=== PATIENT | male | born 1975 | race Caucasian/White ===

== ENCOUNTER 2022-09-23 14:00 | Outpatient (RCR) | payer OTHER, SELFPAY | END 2023-04-15 23:59 | disposition home or self-care (01) | PROVIDERS: PCP Family Medicine; Visit Provider Orthopaedic Surgery | DX: S62.101D Fracture of unspecified carpal bone, right wrist, subsequent encounter for fracture with routine healing (principal); Z51.89 Encounter for other specified aftercare | CPT/HCPCS: 97110; 97140; 97166; X5282 ==

== ENCOUNTER 2024-02-11 08:55 | Outpatient (CLI) | payer OTHER, SELFPAY ==
--- OUTSIDE RECORDS SUMMARY | 2024-02-11 08:57 | XMS_ITS | Clinical Summary ---
Author Name Unknown Organization [employer] [facility] [employer] Address [place], [place] [address] Care Team Providers Care Java Sql Developer Name Role Phone Danie Chavez MD Primary Care Provider + Allergies No known active allergies Medications Medication Sig Dispensed Refills Start Date End Date Status HYDROcodone-acetam inophen (NORCO) 5-325 mg per tabletIndications: Closed displaced fracture of head of right radius, initial encounter Take 1-2 Tablets by mouth every 6 hours if needed for Pain. Max acetaminophen dose: 4000 mg in 24 hrs. 30 Tablet 09/02/2022 Active naproxen (NAPROSYN) 500 mg tabletIndications: Closed displaced fracture of head of right radius, initial encounter Take 1 Tablet (500 mg) by mouth two times daily. 60 Tablet 1 09/02/2022 Active sennosides-docusat e (SENOKOT S) (8.6-50 mg) tabletIndications: Closed displaced fracture of head of right radius, initial encounter Take 1 Tablet by mouth two times daily. Take to prevent constipation while also using narcotic pain medication 60 Tablet 09/02/2022 Active Active Problems Problem Noted Date Diagnosed Date Unspecified hearing loss 06/27/2012 Occupational exposure to noise 06/27/2012 Overview: [facility] Social History Tobacco Use Types Packs/Day Years Used Date Smoking Tobacco: Never Smokeless Tobacco: Never Alcohol Use Standard Drinks/Week Comments Never 0 (1 standard drink = 0.6 oz pur e alcohol) Sex and Gender Information Value Date Recorded Sex Assigned at Not on file Gender Identity Not on file Sexual Orientation Not on file Obstetrics History Last Filed Vital Signs Vital Sign Reading Time Taken Comments Blood Pressure 138/80 09/02/2022 10:45 AM OSTRICH FARMER Pulse 89 09/02/2022 10:45 AM OSTRICH FARMER Temperature 36.2 ??C (97.2 ??F) 09/02/2022 10:[address] Respiratory Rate 16 09/02/2022 10:45 AM OSTRICH FARMER Oxygen Saturation 93% 09/02/2022 10:45 AM OSTRICH FARMER Inhaled Oxygen Concentration - - Weight 90.3 kg (199 lb) 09/02/2022 7:09 AM OSTRICH FARMER Height 168.9 cm (5' 6.5) 09/02/2022 7:09 AM OSTRICH FARMER Body Mass Index 31.64 09/02/2022 7:09 AM OSTRICH FARMER Plan of Treatment Health Maintenance Due Date Last Done Comments Tdap 12/02/1987 Depression screening for age 12+ 1988 HIV for age 15-65 12/02/1991 BMI (ht and wt on same day) for age 18+ 1994 Hepatitis C screening for ag e 18-79 1994 Tetanus booster 1996 Colonoscopy through age 75 2021 Lipids for age 45-75 2021 COVID-19 vaccine series (2022-24 season) 2023 01/21/2021, 12/24/2020 Influenza for age 9-49 05/28/2024 Pneumococcal series for age 6-64 Aged Out No longer eligible b ased on patient's age to complete this topic Medical Devices Implanted Type Area Heritage Consultant Device Identifier Shelf Expiration Date Model / Serial / Lot 1.5mm Non-Locking Screw 1.5mm X 16mm Implanted:Qty: 1 on 09/02/2022 by Ismael Florence MD at [facility] Right: [employer] DEPUY 1312-20-516 / / NA 1.5mm Non-Locking Screw 1.5mm X 20mm Implanted:Qty: 1 on 09/02/2022 by Ismael Florence MD at [facility] Right: [employer] 1312-20-520 / / NA 1.5mm Non-Locking Screw 1.5mm X 24mm Implanted:Qty: 1 on 09/02/2022 by Ismael Florence MD at [facility] Right: [employer] [id number] / / NA Advance Directives * Full Code (Latest Code Status on File) Date Activated Date Inactivated Comments 09/02/2022 7:09 AM 09/02/2022 1:04 PM Question Answer Comments Code Status Discussion: Reviewed Preferences Care Teams Java Sql Developer Relationship Specialty Start Date End Date Danie Chavez MD [address] [place] [address] PCP - General Family Practice 08/28/22
--- OUTSIDE RECORDS SUMMARY | 2024-02-11 08:57 | XMS_ITS | Clinical Summary ---
Author Name Unknown Organization [facility] Address [address] [place] [address] Care Team Providers Care Castings Trimmer Name Role Phone Unassigned, Provider Primary Care Provider Unava ilable Source Comments You are receiving this document as you are listed as the primary care provider,follow-up provider, or the patient has been referred to you for consultation.This is in compliance with the Medicare and[facility] EHR Incentive Program,which states Providers who transition their patient to another setting of careor provider of care or refers their patient to another provider of care shouldprovide summary care record for each transition of care or referral. [facility] Allergies No known active allergies Medications No known medications Active Problems Problem Noted Date Diagnosed Date Obesity, Class I, BMI 30-34.9 08/28/2022 Closed displaced fracture of head of right radiu s 08/27/2022 Overview: Added automatically from request for surgery [id number] Immunizations Name Administration Dates Next Due DTaP 05/07/1982 Flu Vac (3+ yrs) 07/17/2013,07/16/2010 Moderna Monovalent 12+ 01/21/2021,12/24/2020 Pfizer Monovalent 12+ Purple Top 09/18/2021 Polio, Unspecified Formulation 05/07/1982 Tdap 11/11/2018 Family History Medical History Relation Name Comments Heart Disease Father Relation Name Status Comments Father Mother Alive Social History Tobacco Use Types Packs/Day Years Used Date Smoking Tobacco: Never Tobacco Cessation:Counseling Given: Not Answered Sex and Gender Information Value Date Recorded Sex Assigned at Not on file Gender Identity Not on file Sexual Orientation Not on file Last Filed Vital Signs Vital Sign Reading Time Taken Comments Blood Pressure 131/90 09/16/2022 9:30 AM RETAIL BRANCH MANAGER [place] Pulse 98 08/28/2022 10:05 AM RETAIL BRANCH MANAGER Temperature 36.8 ??C (98.3 ??F) 08/28/2022 9:54 AM CS T Respiratory Rate 16 08/28/2022 9:54 AM RETAIL BRANCH MANAGER Oxygen Saturation - - Inhaled Oxygen Concentration - - Weight 89.8 kg (198 lb) 08/28/2022 9:54 AM RETAIL BRANCH MANAGER Height 168.9 cm (5' 6.5) 08/28/2022 9:54 AM RETAIL BRANCH MANAGER Body Mass Index 31.48 08/28/2022 9:54 AM RETAIL BRANCH MANAGER Plan of Treatment Health Maintenance Due Date Last Done Comments Hep C Screening (Preventive Services) 1976 IPV (Polio) (2 of 3 - 4-dose series) 06/04/1982 05/07/1982 HIV Screening (Preventive Services) 1992 HepB (1) 12/02/1995 Cholesterol 12/02/2011 Adult Preventive Visit 12/09/2022 2 (Completed) COVID-19 Vaccine (4 - 2022-2 4 season) 2023 09/18/2021, 01/21/2021, 12/24/2020 Influenza (Season Ended) 2024 013, 07/16/2010 Cologuard (Stool DNA) 12/09/2024 12/09/2021 (Completed) Zoster/Shingles (1 of 2) 2026 DTaP/Tdap/Td (3 - Tdap) 11/11/2028 11/11/19 19, 05/07/1982 HepA Aged Out No longer eligi ble based on patient's age to complete this topic Hib Aged Out No longer eligi ble based on patient's age to complete this topic [email or web address] Aged Out No longer eligi ble based on patient's age to complete this topic Pneumococcal Aged Out No longer eligi ble based on patient's age to complete this topic Care Teams Castings Trimmer Relationship Specialty Start Date End Date Unassigned, Provider [address] [place] [address] PCP - General 06/30/00
== END 2024-02-11 08:56 | disposition home or self-care (01) ==
PROVIDERS: PCP Family Medicine; Visit Provider Family Medicine
DX: Z00.00 Encounter for general adult medical examination without abnormal findings (principal); I10 Essential (primary) hypertension; E78.2 Mixed hyperlipidemia
CPT/HCPCS: 80048; 80061

== ENCOUNTER 2025-02-22 08:55 | Outpatient (CLI) | payer OTHER, SELFPAY | END 2025-02-22 08:56 | disposition home or self-care (01) | PROVIDERS: PCP Family Medicine; Visit Provider Family Medicine | DX: Z00.00 Encounter for general adult medical examination without abnormal findings (principal); E78.2 Mixed hyperlipidemia; I10 Essential (primary) hypertension; N52.9 Male erectile dysfunction, unspecified | CPT/HCPCS: 80048; 80061; 84403; 84460 ==

== ENCOUNTER 2025-04-13 07:30 | Outpatient (CLI) | payer OTHER, SELFPAY | END 2025-04-13 07:31 | disposition home or self-care (01) | LOC: NFLDREF 04-16 11:15 | PROVIDERS: PCP Family Medicine; Referring Provider Family Medicine; Visit Provider Family Medicine | DX: N52.9 Male erectile dysfunction, unspecified (principal); R79.89 Other specified abnormal findings of blood chemistry | CPT/HCPCS: 84403 ==